=== PATIENT | female | born 1965 | race African-American/Black ===

== ENCOUNTER 2019-10-26 18:26 | Emergency (ER) | payer OTHER ==
[~2019-10-26] VITALS: Ht 157.5 cm; Wt 74.8 kg
--- NOTE | 2019-10-26 18:38 | NUR ---
ED Nurse Note: Pt walked into ED w/ c/o L eye redness since yesterday. She denies itchiness or pain in L eye. Pt is alert and orientedx4, ambulatory. Pt states she does not have any trauma to eye. Pt denies LOPEZ. Pt is set up to monitor.
[2019-10-26 18:44] VITALS: BP 170/91
--- NOTE | 2019-10-26 19:31 | Diagnostic Imaging Report ---
Indications: Left-sided headache and blurry vision Technique: Spiral acquisitions obtained through the brain. Angled axial and coronal 5 x 5 mm slices were reconstructed. Total dose length product 1042 mGycm. CTDI vol(s) 53 mGy. Dose reduction achieved using automated exposure control Comparison: None. Findings: No acute intracranial hemorrhage or edema. No mass effect or midline shift. The mastoids are clear. Kaplan-white differentiation is normal. Intact calvarium. There is minimal left ethmoid sinus disease. The orbits are unremarkable. The mastoids are clear. Impression: Negative Incidental finding of minimal ethmoid sinus disease This essentially agrees with the preliminary interpretation provided overnight by [facility]erad[facility]. The CT scanner at [facility] [place] is accredited by the [employer] and the scans are performed using protocols designed to limit radiation exposure to as low as reasonably achievable to attain images of sufficient resolution adequate for diagnostic evaluation.
[2019-10-26] MEDS ORDERED: OCUFLOX5 ML LEFT EYE (19:46)
[2019-10-26 19:50] VITALS: BP 170/91
--- NOTE | 2019-10-26 19:50 | NUR ---
ER DISCHARGE NOTE: Patient is cleared to be discharged per ERMD, pt is aox4, on room air, with stable vital signs. pt was given dc and prescription instructions, pt was able to verbalize understanding, pt id band removed without complications. pt is able to ambulate with steady gait. pt took all belongings.
--- NOTE | 2019-10-26 19:54 | Emergency Room Report ---
History of Present Illness General Chief Complaint: Eye Problems Source: Patient Present Illness HPI 54-year-old female presents ED for evaluation. Complaining of redness to her left eye. Noticed it today when she woke up. Denies any photophobia. States she has "bad eyes" and normally uses contacts. States her vision is unchanged. Denies any tearing. States she feels pressure on the left side of her head. Also had recent dental surgery and placement done on that side. Denies neck stiffness. Denies nausea or vomiting. No other aggravating relieving factors. Denies any other associated symptoms Patient History Past Medical History: HTN Past Surgical History: none Pertinent Family History: none Social History: Denies: smoking, alcohol use, drug use Now: No Immunizations: UTD Reviewed Nursing Documentation: PMH: Agreed; PSxH: Agreed Nursing Documentation-PMH Past Medical History: No History, Except For Hx Hypertension: Yes Review of Systems All Other Systems: negative except mentioned in HPI Physical Exam Vital Signs Date Time Temp Pulse Resp B/P (MAP) Pulse Ox O2 Delivery O2 Flow Rate FiO2 10/26/19 18:29 98.2 68 13 175/100 (125) 98 Room Air Sp02 EP Interpretation: reviewed, normal General Appearance: no apparent distress, alert, GCS 15, non-toxic Head: normocephalic, atraumatic Eyes: right eye normal inspection; left eye other - subconjuntival hemorrhage L eye; bilateral eye PERRL, bilateral eye EOMI ENT: hearing grossly normal, normal pharynx, no angioedema, normal voice Neck: full range of motion, supple/symm/no masses Respiratory: chest non-tender, lungs clear, normal breath sounds, speaking full sentences Cardiovascular #1: regular rate, rhythm, no edema Cardiovascular #2: 2+ carotid (R), 2+ carotid (L), 2+ radial (R), 2+ radial (L) , 2+ dorsalis pedis (R), 2+ dorsalis pedis (L) Gastrointestinal: normal bowel sounds, non tender, soft, non-distended, no guarding, no rebound Rectal: deferred Genitourinary: normal inspection, no CVA tenderness Musculoskeletal: back normal, normal range of motion, gait/station normal, non- tender Neurologic: alert, motor strength/tone normal, oriented x3, sensory intact, responsive, speech normal Psychiatric: judgement/insight normal, memory normal, mood/affect normal, no suicidal/homicidal ideation Reflexes: 3+ bicep (R), 3+ bicep (L), 3+ tricep (R), 3+ tricep (L), 3+ knee (R) , 3+ knee (L) Skin: no rash Lymphatic: no adenopathy Medical Decision Making Diagnostic Impression: Primary Impression: Eye pain Qualified Codes: H57.12 - Ocular pain, left eye ER Course Hospital Course 54 yo F presents to ED c/o L eye redness. pressure L side of head Differential diagnoses include: conjunctivitis, traumatic iritis, foreign body, corneal abrasion Clinical course Patient placed on stretcher. After initial history and physical I ordered CT head CT head unremarkable Clinically appears like a subconjunctival hemorrhage. No change in vision. No photophobia. No tearing. We will discharge with antibiotics. No clinical evidence of a glaucoma. Safe for discharge for close outpatient follow-up. States she has an tobacco baler Diagnosis - eye pain Stable and discharged to home with prescription for Ocuflox. Followup with PMD/ Optho. Return to ED if symptoms recur or worsen CT/MRI/US Diagnostic Results CT/MRI/US Diagnostic Results : Imaging Test Ordered: CT Head Impression no acute process Last Vital Signs Date Time Temp Pulse Resp B/P (MAP) Pulse Ox O2 Delivery O2 Flow Rate FiO2 10/26/19 18:44 98.2 78 16 170/91 99 Room Air Status: improved Disposition: HOME, SELF-CARE Condition: Stable Scripts Ofloxacin (OCUFLOX) 5 Ml Drops 1 DROP LEFT EYE QID for 7 Days, ML Prov: Matthias Carlos MD 10/26/19 Referrals: Aubrey Rey MD NON PHYSICIAN (PCP) Patient Instructions: Subconjunctival Hemorrhage Matthias Carlos MD Oct 26, 2019 19:54
== END 2019-10-26 19:50 | disposition home or self-care (01) ==
LOC: EMR 19:25
DX: H57.12 Ocular pain, left eye (principal); I10 Essential (primary) hypertension
CPT/HCPCS: 70450; 99284

== ENCOUNTER 2019-12-19 08:47 | Emergency (ER) | payer OTHER ==
[~2019-12-19] VITALS: Ht 154.9 cm; Wt 68.0 kg
[~2019-12-19 08:47] MED LIST: OCUFLOX5 ML LEFT EYE
[2019-12-19 09:05] VITALS: BP 182/112
--- NOTE | 2019-12-19 09:05 | NUR ---
ED Nurse Note: Patient walked into ED from home c/o 02/24 suboccipital headache since . 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 Patient BP 182/112 on arrival, patient states she takes BP meds and normally BP is well controlled. Patient AxO x 4, on the peoplesoft developer, bed in lowest position. Urine collected and sent to lab. Dr. Mckeon at bedside.
[2019-12-19] MEDS ORDERED: IBUPROFEN600 M1 ORAL (09:13)
[2019-12-19] MEDS ORDERED: METOPROLOL SUC100 MG ORAL (09:13)
[2019-12-19] MEDS ORDERED: ASPIR 8181 MG ORAL (09:13)
[2019-12-19] MEDS ORDERED: ISOSORBIDE DINI30 MG ORAL (09:13)
--- NOTE | 2019-12-19 09:22 | Emergency Room Report ---
History of Present Illness General Chief Complaint: Headache Source: Patient Present Illness HPI Patient presents with complaints of right-sided trapezius pain going up to the right side of the neck and lower part of the scalp Reports that this morning and over the last night she had increased discomfort Denies any chest pain or shortness of breath denies any vomiting denies any abdominal pain denies any visual changes or eye pain denies any change in medications Patient reports that she has been having outpatient testing including Carotid ultrasounds and is also getting set for stress testing to be done Denies any focal weakness denies any neuropathy denies any other recent trauma Allergies: Coded Allergies: SULFA (SULFONAMIDE ANTIBIOTICS) (Verified Allergy, Severe, Shortness of Breath, 12/19/19) COVID-19 Screening Contact w/high risk pt: No Recent Travel to affected area: No Experienced COVID-19 symptoms?: No Patient History Past Medical History: see triage record Last Menstrual Period: 2000 Now: No Reviewed Nursing Documentation: PMH: Agreed; PSxH: Agreed Nursing Documentation-PMH Past Medical History: No History, Except For Hx Hypertension: Yes Review of Systems All Other Systems: negative except mentioned in HPI Physical Exam Vital Signs Date Time Temp Pulse Resp B/P (MAP) Pulse Ox O2 Delivery O2 Flow Rate FiO2 12/19/19 08:58 98.4 65 20 182/112 (135) 97 Room Air Sp02 EP Interpretation: reviewed, normal General Appearance: well appearing, no apparent distress Head: normocephalic, atraumatic Eyes: bilateral eye PERRL, bilateral eye EOMI ENT: hearing grossly normal, normal pharynx, TMs + canals normal, uvula midline Neck: full range of motion, supple, no meningismus, no bony tend Respiratory: lungs clear, normal breath sounds, no rhonchi, no respiratory distress, no retraction, no accessory muscle use Cardiovascular #1: normal peripheral pulses, regular rate, rhythm, no edema, no gallop, no JVD, no murmur Gastrointestinal: normal bowel sounds, non tender, soft, no mass, no organomegaly, non-distended, no guarding, no hernia, no pulsatile mass, no rebound Genitourinary: no CVA tenderness Musculoskeletal: other - Patient has some increased discomfort on the palpation of the midpoint right trapezius area also some in the right posterior occipital region on palpation Neurologic: motor strength/tone normal, produce manager III-XII nml as tested, oriented x3 , sensory intact, responsive Psychiatric: mood/affect normal Skin: no rash Lymphatic: normal inspection, no adenopathy Medical Decision Making Diagnostic Impression: Primary Impression: Headache Additional Impression: Elevated transaminase level ER Course Multiple differentials including but not limited to neurological, neurosurgical , cardiac, infectious process were entertained On review of medical records patient also had elevated blood pressure on previous presentation she does have a CT on file and with the lack of any neurological findings this was not repeated Patient had blood work including cardiac enzyme obtained The liver function tests are somewhat elevated patient does not have any knowledge of this from previous I do not feel that this is the likely source of her headache and looks to be incidental finding patient is provided a copy of the blood work to follow closely with her primary physician Does feel significantly improved at this time patient's blood pressure has also improved However still somewhat elevated at 158 systolic patient does require improved care and management of this as well And at this time will have close outpatient follow-up Labs Test 12/19/19 09:20 White Blood Count 5.1 K/UL (4.8-10.8) Red Blood Count 4.79 M/UL (4.20-5.40) Hemoglobin 14.5 G/DL (12.0-16.0) Hematocrit 41.7 % (37.0-47.0) Mean Corpuscular Volume 87 FL (80-99) Mean Corpuscular Hemoglobin 30.3 PG (27.0-31.0) Mean Corpuscular Hemoglobin Concent 34.8 G/DL (32.0-36.0) Red Cell Distribution Width 12.0 % (11.6-14.8) Platelet Count 250 K/UL (150-450) Mean Platelet Volume 7.1 FL (6.5-10.1) Neutrophils (%) (Auto) 56.5 % (45.0-75.0) Lymphocytes (%) (Auto) 28.2 % (20.0-45.0) Monocytes (%) (Auto) 11.4 % (1.0-10.0) Eosinophils (%) (Auto) 2.9 % (0.0-3.0) Basophils (%) (Auto) 1.0 % (0.0-2.0) Sodium Level 140 MMOL/L (136-145) Potassium Level 3.9 MMOL/L (3.5-5.1) Chloride Level 102 MMOL/L (98-107) Carbon Dioxide Level 30 MMOL/L (21-32) Anion Gap 8 mmol/L (5-15) Blood Urea Nitrogen 8 mg/dL (7-18) Creatinine 0.9 MG/DL (0.55-1.30) Estimat Glomerular Filtration Rate > 60 mL/min (>60) Glucose Level 100 MG/DL (74-106) Calcium Level 9.2 MG/DL (8.5-10.1) Total Bilirubin 0.8 MG/DL (0.2-1.0) Aspartate Amino Transf (AST/SGOT) 149 U/L (15-37) Alanine Aminotransferase (ALT/SGPT) 192 U/L (12-78) Alkaline Phosphatase 170 U/L (46-116) Total Creatine Kinase 61 U/L (26-308) Troponin I 0.000 ng/mL (0.000-0.056) Total Protein 7.6 G/DL (6.4-8.2) Albumin 3.7 G/DL (3.4-5.0) Globulin 3.9 g/dL Albumin/Globulin Ratio 0.9 (1.0-2.7) Lipase 76 U/L (73-393) EKG Diagnostic Results Rate: normal Rhythm: NSR ST Segments: no acute changes Rhythm Strip Diag. Results EP Interpretation: yes Rate: 77 Rhythm: NSR, no PVC's, no ectopy Chest X-Ray Diagnostic Results Chest X-Ray Diagnostic Results : Chest X-Ray Ordered: Yes # of Views/Limited/Complete: 1 View Indication: Chest Pain EP Interpretation: Yes Interpretation: no consolidation, no effusion, no pneumothorax Impression: No acute disease Electronically Signed by: Octavio Mckeon DO Last Vital Signs Date Time Temp Pulse Resp B/P (MAP) Pulse Ox O2 Delivery O2 Flow Rate FiO2 12/19/19 08:58 98.4 65 20 182/112 (135) 97 Room Air Status: improved Disposition: HOME, SELF-CARE Condition: Improved Scripts Methocarbamol* (ROBAXIN-750*) 750 Mg Tablet 750 MG PO BID, #12 TAB 0 Refills Prov: Octavio Mckeon DO 12/19/19 Referrals: [facility],REFERRING (PCP) Additional Instructions: Patient is provided with the discharge instructions notified to follow up with primary doctor in the next 2-3 days otherwise return to the er with any worsening symptoms. Please note that this report is being documented using DRAGON technology. This can lead to erroneous entry secondary to incorrect interpretation by the dictating instrument. Octavio Mckeon DO December 19, 2019 09:22
[2019-12-19] MEDS ORDERED: Methocarbamol 750mg tab ORAL ONE (09:30)
[2019-12-19] MEDS ORDERED: Ketorolac 30mg Inj IV ONE (09:30)
[2019-12-19 10:02] LABS: EOSINOPHILS % (AUTO) 2.9 % (0.0-3.0); HEMATOCRIT 41.7 % (37.0-47.0); HEMOGLOBIN 14.5 G/DL (12.0-16.0); LYMPHOCYTES % (AUTO) 28.2 % (20.0-45.0); MEAN CORPUSCULAR VOLUME 87 FL (80-99); MONOCYTES % (AUTO) 11.4 % (1.0-10.0); NEUTROPHILS % (AUTO) 56.5 % (45.0-75.0); PLATELET COUNT 250 K/UL (150-450); RED BLOOD COUNT 4.79 M/UL (4.20-5.40); WHITE BLOOD COUNT 5.1 K/UL (4.8-10.8)
[2019-12-19 10:09] LABS: ANION GAP 8 mmol/L (5-15); BLOOD UREA NITROGEN 8 mg/dL (7-18); CARBON DIOXIDE 30 MMOL/L (21-32); CHLORIDE 102 MMOL/L (98-107); CREATININE 0.9 MG/DL (0.55-1.30); POTASSIUM 3.9 MMOL/L (3.5-5.1); SODIUM 140 MMOL/L (136-145)
[2019-12-19 10:10] LABS: CALCIUM 9.2 MG/DL (8.5-10.1)
[2019-12-19 10:14] LABS: ALANINE AMINOTRANSFERASE 192 U/L (12-78); ALBUMIN 3.7 G/DL (3.4-5.0); ALBUMIN/GLOBULIN RATIO 0.9 (1.0-2.7); ALKALINE PHOSPHATASE 170 U/L (46-116); ASPARTATE AMINO TRANSFERASE 149 U/L (15-37); BILIRUBIN,TOTAL 0.8 MG/DL (0.2-1.0); CREATINE KINASE 61 U/L (26-308)
[2019-12-19 11:00] VITALS: BP 168/92
--- NOTE | 2019-12-19 11:00 | NUR ---
ED Nurse Note: Patient resting in bed, states her headache feels much better about 3/10 aching pain.
[2019-12-19] MEDS ORDERED: ROBAXIN-750750 MG PO (11:23)
[2019-12-19 11:31] VITALS: BP 167/90
--- NOTE | 2019-12-19 11:31 | NUR ---
ER DISCHARGE NOTE: Patient is cleared to be discharged per Dr. Mckeon, pt is aox4, on room air, with stable vital signs. pt was given dc and prescription instructions, pt was able to verbalize understanding, pt id band and iv site removed without complications. Headache improved, pt is able to ambulate with steady gait. pt took all belongings.
--- NOTE | 2019-12-19 14:20 | Diagnostic Imaging Report ---
EXAM: XR Chest, 1 View CLINICAL HISTORY: CP TECHNIQUE: Frontal view of the chest. COMPARISON: None FINDINGS: Hardware: None. Lungs/pleura: Normal. No focal consolidation. No pleural effusion or pneumothorax. Heart/mediastinum: Normal. No cardiomegaly. Soft tissues: Unremarkable. Bones: No acute fracture. Upper abdomen: Normal. IMPRESSION: No acute disease identified.
== END 2019-12-19 11:31 | disposition home or self-care (01) ==
LOC: EMR 09:05
DX: R51 Headache (principal); R74.0 Nonspecific elevation of levels of transaminase and lactic acid dehydrogenase [LDH]; Z88.2 Allergy status to sulfonamides; I10 Essential (primary) hypertension
CPT/HCPCS: 36415; 71045; 80053; 82550; 83690; 84484; 85025; 93005; 96374; 99284; J1885

== ENCOUNTER 2020-11-03 16:33 | Emergency (ER) | payer OTHER ==
[~2020-11-03] VITALS: Ht 154.9 cm; Wt 71.2 kg
[~2020-11-03 16:33] MED LIST changes: +ASPIR 8181 MG ORAL; +IBUPROFEN600 M1 ORAL; +ISOSORBIDE DINI30 MG ORAL; +METOPROLOL SUC100 MG ORAL; +ROBAXIN-750750 MG PO
[2020-11-03 16:35] VITALS: BP 148/107
--- NOTE | 2020-11-03 17:02 | Emergency Room Report ---
History of Present Illness General Chief Complaint: Skin Rash/Abscess Present Illness HPI 55-year-old female with history of type 2 diabetes currently taking Metformin and history of angina currently under the care of cmm programmer denying any chest pain upon arrival here complaining of painful rash that she first noticed on right upper back x2 weeks. Reports that now the pain is radiating to right axillary and right breast. Denies fever and chills. The pain 5 out of 10. Reports that the pain started with tingling sensation. Patient believes that it might have been a spider bite. Denies any recent travel, fever and chills. Denies all URI symptoms. Has been using some rubbing alcohol. Allergies: Coded Allergies: SULFA (SULFONAMIDE ANTIBIOTICS) (Verified Allergy, Severe, Shortness of Breath, 12/19/19) COVID-19 Screening Contact w/high risk pt: No Recent Travel to affected area: No Experienced COVID-19 symptoms?: No COVID-19 Testing performed CLINICAL MARKETING MANAGER: No Patient History Past Medical History: see triage record Past Surgical History: none Pertinent Family History: none Now: No Immunizations: UTD Reviewed Nursing Documentation: PMH: Agreed; PSxH: Agreed Nursing Documentation-PMH Hx Hypertension: Yes Review of Systems All Other Systems: negative except mentioned in HPI Physical Exam Vital Signs Date Time Temp Pulse Resp B/P (MAP) Pulse Ox O2 Delivery O2 Flow Rate FiO2 11/03/20 16:35 98.4 92 16 148/107 (121) 93 Room Air Sp02 EP Interpretation: reviewed, normal General Appearance: no apparent distress, alert, GCS 15, non-toxic Head: normocephalic, atraumatic Eyes: bilateral eye normal inspection, bilateral eye PERRL ENT: normal pharynx, no angioedema Neck: thyroid normal, no meningismus, no bony tend Respiratory: no respiratory distress, no retraction, no accessory muscle use Cardiovascular #1: regular rate, rhythm Gastrointestinal: non tender, no mass Musculoskeletal: back normal Neurologic: alert, motor strength/tone normal, oriented x3, sensory intact, responsive, speech normal Psychiatric: judgement/insight normal, memory normal, mood/affect normal, no gtz icidal/homicidal ideation Skin: normal turgor, other - Dried grouped vesicular lesions noted right upper back on erythematous base, warm to touch Lymphatic: no adenopathy Medical Decision Making PA Attestation All my diagnosis and treatment plans were reviewed ad discussed with my supervising physician Dr. Carlos Diagnostic Impression: Primary Impression: Shingles Additional Impression: Cellulitis ER Course 55-year-old female with history of type 2 diabetes currently taking Metformin and history of angina currently under the care of cmm programmer denying any chest pain upon arrival here complaining of painful rash that she first noticed on right upper back x2 weeks. Reports that now the pain is radiating to right axillary and right breast. Denies fever and chills. The pain 5 out of 10. Reports that the pain started with tingling sensation. Patient believes that it might have been a spider bite. Denies any recent travel, fever and chills. Denies all URI symptoms. Has been using some rubbing alcohol. Ddx considered but are not limited to: Eczema, scabies, lice, shingles Vital signs: are WNL, pt. is afebrile H&PE are most consistent with:shingles, cellulitis ORDERS: Acyclovir, Keflex ED INTERVENTIONS: None required at this time. DISCHARGE: At this time pt. is stable for d/c to home. Will provide printed patient care instructions, and any necessary prescriptions. Care plan and follow up instructions have been discussed with the patient prior to discharge. Take medication as directed, follow-up, avoid close contact with. Immunocompromise patients. If worsening symptoms return to the emergency room At this time patient denies any chest pain shortness of breath, reports that has an upcoming appointment with cmm programmer and will follow up Last Vital Signs Date Time Temp Pulse Resp B/P (MAP) Pulse Ox O2 Delivery O2 Flow Rate FiO2 11/03/20 16:35 98.4 92 16 148/107 (121) 93 Room Air Disposition: HOME, SELF-CARE Condition: Stable Scripts Acyclovir* (ZOVIRAX*) 800 Mg Tablet 800 MG ORAL FIVE TIMES A DAY for 7 Days, #35 TAB Prov: Antonio De La Rosa 11/03/20 Cephalexin* (KEFLEX*) 500 Mg Capsule 500 MG ORAL EVERY 6 HOURS for 7 Days, #28 CAP Prov: Antonio De La Rosa 11/03/20 Patient Instructions: Cellulitis, [id number], Shingles Additional Instructions: Take medication as directed, follow primary care provider, if worsening symptoms return to the emergency room Antonio De La Rosa Nov 03, 2020 17:02
[2020-11-03] MEDS ORDERED: CEPHALEXIN500 MG ORAL (17:04)
[2020-11-03] MEDS ORDERED: ACYCLOVIR800 MG ORAL (17:04)
== END 2020-11-03 17:41 | disposition home or self-care (01) ==
LOC: EMR 17:08
DX: B02.9 Zoster without complications (principal); L03.90 Cellulitis, unspecified; E11.9 Type 2 diabetes mellitus without complications; Z79.84 Long term (current) use of oral hypoglycemic drugs; I10 Essential (primary) hypertension; Z88.2 Allergy status to sulfonamides
CPT/HCPCS: 99282